=== PATIENT | male | born 1970 | race African-American/Black ===

== ENCOUNTER 2019-12-27 10:53 | Emergency (ER) | payer SELFPAY ==
[~2019-12-27] VITALS: Ht 175.3 cm; Wt 95.3 kg
[2019-12-27 11:34] LABS: BASOPHILS # (AUTO) 0.1 (0.0-0.1); BASOPHILS % 0.8 % (0.0-1.0); EOSINOPHILS # (AUTO) 0.1 (0.0-0.4); EOSINOPHILS % 1.3 % (0.0-6.0); HEMATOCRIT 41.2 % (38.2-49.6); HEMOGLOBIN 13.7 g/dL (14.0-18.0); LYMPHOCYTES # (AUTO) 2.3 (1.0-3.2); LYMPHOCYTES % 24.7 % (18.0-39.1); MEAN CORPUSCULAR HEMOGLOBIN 28.8 pg (28-32); MEAN CORPUSCULAR HGB CONC 33.3 g/dL (31-35); MEAN CORPUSCULAR VOLUME 86.7 fL (81-99); MONOCYTES # (AUTO) 0.7 (0.2-0.8); MONOCYTES % 7.9 % (4.4-11.3); PLATELET COUNT 248 x10e3/uL (140-360); RED BLOOD COUNT 4.75 x10e6/uL (4.3-5.7); RED CELL DISTRIBUTION WIDTH 13.7 % (11.7-14.4)
[2019-12-27 11:42] LABS: CLARITY,URINE CLOUDY (CLEAR); COLOR,URINE ORANGE (YELLOW); LEUKOCYTE ESTERASE ,URINE SMALL (NEGATIVE); NITRITE,URINE NEGATIVE (NEGATIVE)
[2019-12-27 11:43] LABS: BILIRUBIN,URINE NEGATIVE (NEGATIVE); KETONES,URINE NEGATIVE (NEGATIVE); PROTEIN,URINE DIPSTICK 1+ (NEGATIVE); URINE UROBILINOGEN 1 mg/dL (0.2 - 1)
[2019-12-27 11:44] LABS: PROTHROMBIN TIME 13.8 seconds (11.9-14.5)
[2019-12-27 11:45] LABS: PARTIAL THROMBOPLASTIN TIME 29.6 seconds (23.8-35.5)
[2019-12-27 11:49] LABS: RBC,URINE >50 /HPF (0-5); WBC,URINE (MAN) 21-50 /HPF (0-5)
[2019-12-27 11:50] LABS: BACTERIA,URINE MANY /HPF; EPITHELIAL CELLS,URINE FEW /LPF
[2019-12-27 11:51] LABS: ALANINE AMINOTRANSFERASE 32 IU/L (0-55); ALBUMIN 3.7 g/dL (3.5-5.0); ALBUMIN/GLOBULIN RATIO 0.9 (0.8-2.0); ALKALINE PHOSPHATASE 114 IU/L (40-150); BLOOD UREA NITROGEN 12 mg/dL (7-26); BUN/CREATININE RATIO 11 (6-25); CALCIUM 9.3 mg/dL (8.4-10.2); CARBON DIOXIDE 27 mmol/L (22-29); CHLORIDE 104 mmol/L (98-107); CREATININE, SERUM 1.13 mg/dL (0.72-1.25); EST GLOMERULAR FILTRATION RATE > 60 ML/MIN (60-); GLUCOSE 91 mg/dL (74-118); SODIUM 139 mmol/L (136-145)
[2019-12-27] MEDS ORDERED: AZITHROMYCIN 250 MG TAB PO STA (12:21)
[2019-12-27] MEDS ORDERED: CEFTRIAXONE SOD 1 GM/NS 50 ML 50 ML IV ONE (12:30)
[2019-12-27 13:46] VITALS: BP 118/77
== END 2019-12-27 13:50 | disposition home or self-care (01) ==
LOC: ER 10:53
DX: R30.0 Dysuria (principal); M54.5 Low back pain; N30.01 Acute cystitis with hematuria
CPT/HCPCS: 36415; 80053; 81001; 85025; 85610; 85730; 87086; 87186; 99284; J0696

== ENCOUNTER 2020-10-04 16:56 | Inpatient (IN) | payer BC ==
[~2020-10-04] VITALS: Ht 175.3 cm; Wt 95.3 kg
[2020-10-04] MEDS ORDERED: DEXAMETHASONE SOD PHOS 10 MG/1 ML VIAL IV STA (17:18)
[2020-10-04] MEDS ORDERED: AZITHROMYCIN 500MG/NS 250 ML 250 ML IV STA (17:18)
[2020-10-04] MEDS ORDERED: ASPIRIN 81 MG CHEW TAB PO ONE ×2 (17:30→19:15)
[2020-10-04 17:47] LABS: BASOPHILS % 0.1 % (0.0-1.0); EOSINOPHILS % 0.1 % (0.0-6.0); HEMATOCRIT 42.5 % (38.2-49.6); HEMOGLOBIN 14.1 g/dL (14.0-18.0); LYMPHOCYTES # (AUTO) 1.4 (1.0-3.2); LYMPHOCYTES % 20.4 % (18.0-39.1); MEAN CORPUSCULAR HEMOGLOBIN 27.6 pg (28-32); MEAN CORPUSCULAR HGB CONC 33.2 g/dL (31-35); MEAN CORPUSCULAR VOLUME 83.3 fL (81-99); MONOCYTES # (AUTO) 0.5 (0.2-0.8); MONOCYTES % 6.6 % (4.4-11.3); NEUTROPHILS # (AUTO) 4.9 (2.1-6.9); NEUTROPHILS % 72.4 % (38.7-80.0); PLATELET COUNT 182 x10e3/uL (140-360); RED CELL DISTRIBUTION WIDTH 13.7 % (11.7-14.4)
[2020-10-04 18:12] LABS: B-TYPE NATRIURETIC PEPTIDE2 < 10.0 pg/mL (0-100)
[2020-10-04 18:13] LABS: ALANINE AMINOTRANSFERASE 73 IU/L (0-55); ALBUMIN 3.7 g/dL (3.5-5.0); ALBUMIN/GLOBULIN RATIO 0.8 (0.8-2.0); ALKALINE PHOSPHATASE 95 IU/L (40-150); ANION GAP 19.1 mmol/L (8-16); BLOOD UREA NITROGEN 16 mg/dL (7-26); BUN/CREATININE RATIO 14 (6-25); CALCIUM 8.4 mg/dL (8.4-10.2); CARBON DIOXIDE 25 mmol/L (22-29); CHLORIDE 97 mmol/L (98-107); CREATINE KINASE 359 IU/L (30-200); CREATININE, SERUM 1.13 mg/dL (0.72-1.25); EST GLOMERULAR FILTRATION RATE > 60 ML/MIN (60-); GLUCOSE 119 mg/dL (74-118); POTASSIUM 4.1 mmol/L (3.5-5.1); SODIUM 137 mmol/L (136-145)
[2020-10-04] MEDS ORDERED: SODIUM CHLORIDE 0.9% 50ML 50 ML ONE (19:06)
[2020-10-04] MEDS ORDERED: IOPAMIDOL 370 MG/ML 200 ML INFUS..BTL INJ ONE (19:07)
[2020-10-04 23:00] VITALS: BP 114/79
[2020-10-04 23:40] VITALS: BP 146/81
[2020-10-04 23:46] VITALS: BP 146/81
[2020-10-05] MEDS ORDERED: SIMETHICONE 80 MG CHEW PO PRN (00:15)
[2020-10-05] MEDS ORDERED: DOCUSATE SODIUM 100 MG CAP PO PRN (00:15)
[2020-10-05] MEDS ORDERED: HYDROCODONE/APAP 5MG-325MG TAB PO PRN (00:15)
[2020-10-05] MEDS ORDERED: ACETAMINOPHEN 325 MG TAB PO PRN (00:15)
[2020-10-05] MEDS ORDERED: DEXTROSE 50% SYRINGE 50 ML IV PRN (00:15)
[2020-10-05] MEDS ORDERED: POTASSIUM CHLORIDE 20 MEQ TAB CR PO PRN (00:15)
[2020-10-05] MEDS ORDERED: HYDRALAZINE HCL 20 MG/ML VIAL IV PRN (00:15)
[2020-10-05] MEDS ORDERED: ONDANSETRON HCL INJ 2MG/ML 2ML 2 MG/ML VIAL IV PRN (00:15)
[2020-10-05] MEDS ORDERED: DIPHENHYDRAMINE HCL 25 MG CAP PO PRN (00:15)
[2020-10-05] MEDS ORDERED: CHLORASEPTIC SPRAY 177 ML BTL MM PRN (00:15)
[2020-10-05] MEDS ORDERED: POLYETHYLENE GLYCOL 3350 17 GM PACK PO PRN (00:15)
[2020-10-05] MEDS ORDERED: LIDOCAINE 4% PATCH TP PRN (00:15)
[2020-10-05] MEDS: CEFTRIAXONE SOD 1 GM/NS 50 ML 50 ML IV SCH (01:15)
[2020-10-05] MEDS ORDERED: SODIUM CHLORIDE 0.9% 250ML 250 ML ONE (01:25)
[2020-10-05 04:35] VITALS: BP 134/91
[2020-10-05 05:52] LABS: HEMATOCRIT 43.7 % (38.2-49.6); LYMPHOCYTES # (AUTO) 0.6 (1.0-3.2); MEAN CORPUSCULAR HEMOGLOBIN 27.2 pg (28-32); MONOCYTES # (AUTO) 0.2 (0.2-0.8); MONOCYTES % 4.6 % (4.4-11.3); NEUTROPHILS # (AUTO) 4.1 (2.1-6.9); NEUTROPHILS % 83.2 % (38.7-80.0); PLATELET COUNT 186 x10e3/uL (140-360); RED BLOOD COUNT 5.14 x10e6/uL (4.3-5.7); RED CELL DISTRIBUTION WIDTH 13.6 % (11.7-14.4)
[2020-10-05 06:27] LABS: CREATINE KINASE 269 IU/L (30-200)
[2020-10-05 06:51] LABS: ALANINE AMINOTRANSFERASE 88 IU/L (0-55); ALBUMIN 3.5 g/dL (3.5-5.0); ALBUMIN/GLOBULIN RATIO 0.8 (0.8-2.0); ALKALINE PHOSPHATASE 110 IU/L (40-150); BLOOD UREA NITROGEN 17 mg/dL (7-26); BUN/CREATININE RATIO 14 (6-25); CALCIUM 8.8 mg/dL (8.4-10.2); CARBON DIOXIDE 29 mmol/L (22-29); CHLORIDE 98 mmol/L (98-107); EST GLOMERULAR FILTRATION RATE > 60 ML/MIN (60-); GLUCOSE 262 mg/dL (74-118); SODIUM 139 mmol/L (136-145)
[2020-10-05 07:41] VITALS: BP 122/91
[2020-10-05] MEDS: PANTOPRAZOLE SOD 40 MG TABEC PO SCH (08:20)
[2020-10-05] MEDS: AZITHROMYCIN 500MG/NS 250 ML 250 ML IV SCH (08:20)
[2020-10-05] MEDS: DEXAMETHASONE SOD PHOS INJ 4 MG/ML VIAL IV SCH (08:20)
[2020-10-05 08:41] LABS: MAGNESIUM 2.5 MG/DL (1.3-2.1); PHOSPHORUS 4.6 MG/DL (2.3-4.7)
[2020-10-05 09:01] LABS: FERRITIN 989.61 ng/mL (21.81-274.66)
[2020-10-05] MEDS ORDERED: REMDESIVIR 200MG/NS 100ML 200 MG in SODIUM CHLORIDE 0.9% 100 ML 100 ML IV ONE (10:00)
[2020-10-05 10:08] VITALS: BP 122/91
[2020-10-05 10:33] LABS: CREATINE KINASE 223 IU/L (30-200)
[2020-10-05 11:54] VITALS: BP 118/64
[2020-10-05 15:57] VITALS: BP 129/81
[2020-10-05] MEDS: ENOXAPARIN SOD INJ 40 MG/0.4 ML SYR SC SCH (18:29)
[2020-10-05 21:21] VITALS: BP 128/88
[2020-10-06] VITALS (9 sets, daily range): BP systolic 100–123; BP diastolic 61–89
[2020-10-06] MEDS: CEFTRIAXONE SOD 1 GM/NS 50 ML 50 ML IV SCH ×2 (00:15→23:41)
[2020-10-06] MEDS: MELATONIN 5 MG TABLET PO PRN (01:27)
[2020-10-06 06:33] LABS: BASOPHILS % 0.1 % (0.0-1.0); HEMATOCRIT 42.5 % (38.2-49.6); HEMOGLOBIN 13.8 g/dL (14.0-18.0); LYMPHOCYTES # (AUTO) 1.2 (1.0-3.2); LYMPHOCYTES % 11.8 % (18.0-39.1); MEAN CORPUSCULAR HEMOGLOBIN 28.2 pg (28-32); MEAN CORPUSCULAR HGB CONC 32.5 g/dL (31-35); MEAN CORPUSCULAR VOLUME 86.7 fL (81-99); MONOCYTES # (AUTO) 0.8 (0.2-0.8); MONOCYTES % 7.8 % (4.4-11.3); NEUTROPHILS % 79.6 % (38.7-80.0); PLATELET COUNT 208 x10e3/uL (140-360); RED CELL DISTRIBUTION WIDTH 13.6 % (11.7-14.4)
[2020-10-06 07:01] LABS: ALANINE AMINOTRANSFERASE 76 IU/L (0-55); ALBUMIN 3.3 g/dL (3.5-5.0); ALBUMIN/GLOBULIN RATIO 0.8 (0.8-2.0); ALKALINE PHOSPHATASE 101 IU/L (40-150); ANION GAP 16.2 mmol/L (8-16); BLOOD UREA NITROGEN 16 mg/dL (7-26); BUN/CREATININE RATIO 14 (6-25); CALCIUM 8.4 mg/dL (8.4-10.2); CARBON DIOXIDE 29 mmol/L (22-29); CHLORIDE 99 mmol/L (98-107); CREATININE, SERUM 1.18 mg/dL (0.72-1.25); EST GLOMERULAR FILTRATION RATE > 60 ML/MIN (60-); GLUCOSE 234 mg/dL (74-118); POTASSIUM 5.2 mmol/L (3.5-5.1); SODIUM 139 mmol/L (136-145)
[2020-10-06] MEDS: PANTOPRAZOLE SOD 40 MG TABEC PO SCH (10:21)
[2020-10-06] MEDS: DEXAMETHASONE SOD PHOS INJ 4 MG/ML VIAL IV SCH (10:21)
[2020-10-06] MEDS: AZITHROMYCIN 500MG/NS 250 ML 250 ML IV SCH (10:21)
[2020-10-06] MEDS ORDERED: FUROSEMIDE INJ 10 MG/ML 4 ML VIAL IV ONE (11:15)
[2020-10-06] MEDS: GUAIFENESIN/CODEINE 10 ML CUP PO PRN ×2 (11:26→21:06)
[2020-10-06] MEDS: REMDESIVIR 100MG/NS 100ML 100 MG IV SCH (12:55)
[2020-10-06] MEDS: ENOXAPARIN SOD INJ 40 MG/0.4 ML SYR SC SCH (17:43)
[2020-10-06] MEDS: BENZONATATE 100 MG CAP PO PRN (21:06)
[2020-10-07] VITALS (8 sets, daily range): BP systolic 114–134; BP diastolic 83–88
[2020-10-07 06:41] LABS: BASOPHILS % 0.1 % (0.0-1.0); HEMATOCRIT 44.4 % (38.2-49.6); HEMOGLOBIN 14.1 g/dL (14.0-18.0); LYMPHOCYTES # (AUTO) 1.3 (1.0-3.2); LYMPHOCYTES % 15.4 % (18.0-39.1); MEAN CORPUSCULAR HEMOGLOBIN 27.1 pg (28-32); MEAN CORPUSCULAR HGB CONC 31.8 g/dL (31-35); MEAN CORPUSCULAR VOLUME 85.4 fL (81-99); MONOCYTES # (AUTO) 0.8 (0.2-0.8); MONOCYTES % 9.9 % (4.4-11.3); NEUTROPHILS % 73.7 % (38.7-80.0); PLATELET COUNT 239 x10e3/uL (140-360); RED CELL DISTRIBUTION WIDTH 13.7 % (11.7-14.4)
[2020-10-07 07:18] LABS: ANION GAP 18.8 mmol/L (8-16); BLOOD UREA NITROGEN 21 mg/dL (7-26); BUN/CREATININE RATIO 18 (6-25); CALCIUM 8.6 mg/dL (8.4-10.2); CARBON DIOXIDE 29 mmol/L (22-29); CHLORIDE 98 mmol/L (98-107); CREATININE, SERUM 1.17 mg/dL (0.72-1.25); EST GLOMERULAR FILTRATION RATE > 60 ML/MIN (60-); GLUCOSE 155 mg/dL (74-118); POTASSIUM 4.8 mmol/L (3.5-5.1); SODIUM 141 mmol/L (136-145)
[2020-10-07] MEDS: PANTOPRAZOLE SOD 40 MG TABEC PO SCH (08:23)
[2020-10-07] MEDS: DEXAMETHASONE SOD PHOS INJ 4 MG/ML VIAL IV SCH (08:39)
[2020-10-07] MEDS: REMDESIVIR 100MG/NS 100ML 100 MG IV SCH (08:39)
[2020-10-07] MEDS: AZITHROMYCIN 500MG/NS 250 ML 250 ML IV SCH (10:34)
[2020-10-07] MEDS: PIPER-TAZ 3.375 GM 50 ML IV SCH ×2 (13:49→21:34)
[2020-10-07] MEDS: ENOXAPARIN SOD INJ 40 MG/0.4 ML SYR SC SCH (16:39)
[2020-10-07] MEDS ORDERED: SODIUM CHLORIDE 0.9% 250ML 250 ML ONE (21:23)
[2020-10-08] VITALS (8 sets, daily range): BP systolic 106–120; BP diastolic 79–91
[2020-10-08] MEDS: PIPER-TAZ 3.375 GM 50 ML IV SCH ×3 (06:20→21:20)
[2020-10-08] MEDS: PANTOPRAZOLE SOD 40 MG TABEC PO SCH (08:00)
[2020-10-08] MEDS: DEXAMETHASONE SOD PHOS INJ 4 MG/ML VIAL IV SCH (08:00)
[2020-10-08] MEDS: REMDESIVIR 100MG/NS 100ML 100 MG IV SCH (11:00)
[2020-10-08] MEDS: ENOXAPARIN SOD INJ 40 MG/0.4 ML SYR SC SCH ×2 (12:29→21:20)
[2020-10-08] MEDS: GUAIFENESIN/CODEINE 10 ML CUP PO PRN (12:34)
[2020-10-08] MEDS ORDERED: SODIUM CHLORIDE 0.9% 250ML 250 ML ONE (21:20)
[2020-10-09] VITALS (8 sets, daily range): BP systolic 99–148; BP diastolic 67–131
[2020-10-09] MEDS: GUAIFENESIN/CODEINE 10 ML CUP PO PRN (05:40)
[2020-10-09] MEDS: PIPER-TAZ 3.375 GM 50 ML IV SCH ×3 (06:00→22:30)
[2020-10-09 06:47] LABS: BASOPHILS % 0.1 % (0.0-1.0); EOSINOPHILS % 0.1 % (0.0-6.0); HEMATOCRIT 35.8 % (38.2-49.6); LYMPHOCYTES # (AUTO) 1.5 (1.0-3.2); LYMPHOCYTES % 13.4 % (18.0-39.1); MEAN CORPUSCULAR HEMOGLOBIN 29.4 pg (28-32); MEAN CORPUSCULAR HGB CONC 33.5 g/dL (31-35); MEAN CORPUSCULAR VOLUME 87.7 fL (81-99); MONOCYTES # (AUTO) 0.7 (0.2-0.8); MONOCYTES % 6.4 % (4.4-11.3); NEUTROPHILS # (AUTO) 8.9 (2.1-6.9); NEUTROPHILS % 78.9 % (38.7-80.0); PLATELET COUNT 186 x10e3/uL (140-360); RED BLOOD COUNT 4.08 x10e6/uL (4.3-5.7); RED CELL DISTRIBUTION WIDTH 14.2 % (11.7-14.4)
[2020-10-09 07:02] LABS: ALANINE AMINOTRANSFERASE 29 IU/L (0-55); ALBUMIN 2.2 g/dL (3.5-5.0); ALBUMIN/GLOBULIN RATIO 0.8 (0.8-2.0); ALKALINE PHOSPHATASE 60 IU/L (40-150); ANION GAP 10.9 mmol/L (8-16); BLOOD UREA NITROGEN 18 mg/dL (7-26); BUN/CREATININE RATIO 25 (6-25); CARBON DIOXIDE 20 mmol/L (22-29); CHLORIDE 113 mmol/L (98-107); CREATININE, SERUM 0.71 mg/dL (0.72-1.25); EST GLOMERULAR FILTRATION RATE > 60 ML/MIN (60-); GLUCOSE 124 mg/dL (74-118); SODIUM 141 mmol/L (136-145)
[2020-10-09 07:42] LABS: POTASSIUM 2.9 mmol/L (3.5-5.1)
[2020-10-09 07:43] LABS: CALCIUM 5.9 mg/dL (8.4-10.2)
[2020-10-09] MEDS: DEXAMETHASONE SOD PHOS INJ 4 MG/ML VIAL IV SCH (08:30)
[2020-10-09] MEDS: PANTOPRAZOLE SOD 40 MG TABEC PO SCH (08:30)
[2020-10-09] MEDS: ENOXAPARIN SOD INJ 40 MG/0.4 ML SYR SC SCH ×2 (08:30→20:52)
[2020-10-09] MEDS: REMDESIVIR 100MG/NS 100ML 100 MG IV SCH (11:00)
[2020-10-09] MEDS ORDERED: POTASSIUM CHLORIDE 10MEQ/100ML 100 ML IV ONE (13:45)
[2020-10-09] MEDS ORDERED: CALCIUM CHLORIDE 13.6 MEQ in SODIUM CHLORIDE 0.9% 100 ML 100 ML IV ONE (14:00)
[2020-10-09] MEDS ORDERED: POTASSIUM CHLORIDE 20MEQ/100ML 200 ML IV ONE (15:00)
[2020-10-09 16:07] LABS: ANION GAP 17.6 mmol/L (8-16); BLOOD UREA NITROGEN 24 mg/dL (7-26); BUN/CREATININE RATIO 22 (6-25); CALCIUM 8.3 mg/dL (8.4-10.2); CARBON DIOXIDE 19 mmol/L (22-29); CHLORIDE 102 mmol/L (98-107); CREATININE, SERUM 1.11 mg/dL (0.72-1.25); EST GLOMERULAR FILTRATION RATE > 60 ML/MIN (60-); GLUCOSE 309 mg/dL (74-118); POTASSIUM 4.6 mmol/L (3.5-5.1); SODIUM 134 mmol/L (136-145)
[2020-10-09] MEDS: ALBUTEROL SULFATE HFA 8GM INHALATION AEROSOL INH SCH (20:55)
[2020-10-10] VITALS (9 sets, daily range): BP systolic 98–127; BP diastolic 58–88
[2020-10-10] MEDS: ALBUTEROL SULFATE HFA 8GM INHALATION AEROSOL INH SCH ×4 (01:20→20:20)
[2020-10-10 05:09] LABS: BASOPHILS % 0.2 % (0.0-1.0); EOSINOPHILS % 0.2 % (0.0-6.0); HEMATOCRIT 40.1 % (38.2-49.6); HEMOGLOBIN 13.1 g/dL (14.0-18.0); LYMPHOCYTES # (AUTO) 1.3 (1.0-3.2); LYMPHOCYTES % 9.7 % (18.0-39.1); MEAN CORPUSCULAR HEMOGLOBIN 27.3 pg (28-32); MEAN CORPUSCULAR HGB CONC 32.7 g/dL (31-35); MEAN CORPUSCULAR VOLUME 83.5 fL (81-99); MONOCYTES # (AUTO) 0.8 (0.2-0.8); MONOCYTES % 5.6 % (4.4-11.3); NEUTROPHILS # (AUTO) 11.3 (2.1-6.9); NEUTROPHILS % 83.2 % (38.7-80.0); PLATELET COUNT 256 x10e3/uL (140-360); RED CELL DISTRIBUTION WIDTH 13.4 % (11.7-14.4)
[2020-10-10 05:51] LABS: ALANINE AMINOTRANSFERASE 36 IU/L (0-55); ALBUMIN 2.9 g/dL (3.5-5.0); ALBUMIN/GLOBULIN RATIO 0.7 (0.8-2.0); ALKALINE PHOSPHATASE 85 IU/L (40-150); ANION GAP 15.8 mmol/L (8-16); BLOOD UREA NITROGEN 20 mg/dL (7-26); BUN/CREATININE RATIO 19 (6-25); CALCIUM 8.2 mg/dL (8.4-10.2); CARBON DIOXIDE 22 mmol/L (22-29); CHLORIDE 102 mmol/L (98-107); CREATININE, SERUM 1.05 mg/dL (0.72-1.25); EST GLOMERULAR FILTRATION RATE > 60 ML/MIN (60-); GLUCOSE 223 mg/dL (74-118); POTASSIUM 3.8 mmol/L (3.5-5.1); SODIUM 136 mmol/L (136-145)
[2020-10-10] MEDS: PIPER-TAZ 3.375 GM 50 ML IV SCH (06:10)
[2020-10-10] MEDS: ENOXAPARIN SOD INJ 40 MG/0.4 ML SYR SC SCH ×2 (07:59→20:37)
[2020-10-10] MEDS: PANTOPRAZOLE SOD 40 MG TABEC PO SCH (07:59)
[2020-10-10] MEDS: DEXAMETHASONE SOD PHOS INJ 4 MG/ML VIAL IV SCH (07:59)
[2020-10-10] MEDS ORDERED: LACTATED RINGER'S 500 ML IV ONE (15:00)
[2020-10-10] MEDS: GUAIFENESIN/CODEINE 10 ML CUP PO PRN (21:10)
[2020-10-11] VITALS (8 sets, daily range): BP systolic 104–133; BP diastolic 62–88
[2020-10-11] MEDS: ALBUTEROL SULFATE HFA 8GM INHALATION AEROSOL INH SCH ×4 (01:00→19:00)
[2020-10-11 05:20] LABS: BASOPHILS % 0.2 % (0.0-1.0); EOSINOPHILS # (AUTO) 0.1 (0.0-0.4); EOSINOPHILS % 0.7 % (0.0-6.0); HEMATOCRIT 40.3 % (38.2-49.6); HEMOGLOBIN 13.1 g/dL (14.0-18.0); LYMPHOCYTES # (AUTO) 1.2 (1.0-3.2); LYMPHOCYTES % 9.6 % (18.0-39.1); MEAN CORPUSCULAR HEMOGLOBIN 27.3 pg (28-32); MEAN CORPUSCULAR HGB CONC 32.5 g/dL (31-35); MONOCYTES # (AUTO) 0.8 (0.2-0.8); NEUTROPHILS # (AUTO) 10.3 (2.1-6.9); NEUTROPHILS % 82.4 % (38.7-80.0); PLATELET COUNT 279 x10e3/uL (140-360); RED CELL DISTRIBUTION WIDTH 13.7 % (11.7-14.4)
[2020-10-11 05:48] LABS: ANION GAP 15.1 mmol/L (8-16); BLOOD UREA NITROGEN 16 mg/dL (7-26); BUN/CREATININE RATIO 16 (6-25); CALCIUM 8.4 mg/dL (8.4-10.2); CARBON DIOXIDE 26 mmol/L (22-29); CHLORIDE 102 mmol/L (98-107); CREATININE, SERUM 1.01 mg/dL (0.72-1.25); EST GLOMERULAR FILTRATION RATE > 60 ML/MIN (60-); GLUCOSE 211 mg/dL (74-118); POTASSIUM 4.1 mmol/L (3.5-5.1); SODIUM 139 mmol/L (136-145)
[2020-10-11] MEDS: ENOXAPARIN SOD INJ 40 MG/0.4 ML SYR SC SCH ×2 (08:13→20:28)
[2020-10-11] MEDS: PANTOPRAZOLE SOD 40 MG TABEC PO SCH (08:13)
[2020-10-11] MEDS: DEXAMETHASONE SOD PHOS INJ 4 MG/ML VIAL IV SCH (08:13)
[2020-10-11] MEDS ORDERED: LACTATED RINGER'S 500 ML IV ONE (15:15)
[2020-10-11] MEDS: MELATONIN 5 MG TABLET PO PRN (20:28)
[2020-10-12] VITALS (7 sets, daily range): BP systolic 103–124; BP diastolic 79–87
[2020-10-12] MEDS: ALBUTEROL SULFATE HFA 8GM INHALATION AEROSOL INH SCH ×5 (01:15→19:50)
[2020-10-12] MEDS: ENOXAPARIN SOD INJ 40 MG/0.4 ML SYR SC SCH ×2 (08:08→20:33)
[2020-10-12] MEDS: PANTOPRAZOLE SOD 40 MG TABEC PO SCH (08:08)
[2020-10-12] MEDS: DEXAMETHASONE SOD PHOS INJ 4 MG/ML VIAL IV SCH (08:08)
[2020-10-12] MEDS ORDERED: FUROSEMIDE INJ 10 MG/ML 2 ML VIAL IV ONE (09:00)
[2020-10-13] VITALS (8 sets, daily range): BP systolic 114–133; BP diastolic 76–92
[2020-10-13] MEDS: ALBUTEROL SULFATE HFA 8GM INHALATION AEROSOL INH SCH ×5 (01:00→19:25)
[2020-10-13 05:01] LABS: BASOPHILS % 0.1 % (0.0-1.0); EOSINOPHILS # (AUTO) 0.1 (0.0-0.4); EOSINOPHILS % 0.4 % (0.0-6.0); HEMATOCRIT 39.5 % (38.2-49.6); HEMOGLOBIN 13.1 g/dL (14.0-18.0); LYMPHOCYTES # (AUTO) 1.3 (1.0-3.2); MEAN CORPUSCULAR HEMOGLOBIN 27.3 pg (28-32); MEAN CORPUSCULAR HGB CONC 33.2 g/dL (31-35); MEAN CORPUSCULAR VOLUME 82.3 fL (81-99); MONOCYTES # (AUTO) 0.9 (0.2-0.8); MONOCYTES % 6.4 % (4.4-11.3); NEUTROPHILS # (AUTO) 11.7 (2.1-6.9); NEUTROPHILS % 83.1 % (38.7-80.0); PLATELET COUNT 317 x10e3/uL (140-360); RED CELL DISTRIBUTION WIDTH 13.7 % (11.7-14.4)
[2020-10-13 05:27] LABS: ALANINE AMINOTRANSFERASE 30 IU/L (0-55); ALBUMIN/GLOBULIN RATIO 0.8 (0.8-2.0); ALKALINE PHOSPHATASE 82 IU/L (40-150); ANION GAP 16.3 mmol/L (8-16); BLOOD UREA NITROGEN 21 mg/dL (7-26); BUN/CREATININE RATIO 20 (6-25); CALCIUM 8.7 mg/dL (8.4-10.2); CARBON DIOXIDE 25 mmol/L (22-29); CHLORIDE 99 mmol/L (98-107); CREATININE, SERUM 1.05 mg/dL (0.72-1.25); EST GLOMERULAR FILTRATION RATE > 60 ML/MIN (60-); GLUCOSE 324 mg/dL (74-118); POTASSIUM 4.3 mmol/L (3.5-5.1); SODIUM 136 mmol/L (136-145)
[2020-10-13] MEDS: ENOXAPARIN SOD INJ 40 MG/0.4 ML SYR SC SCH ×2 (08:00→20:07)
[2020-10-13] MEDS: PANTOPRAZOLE SOD 40 MG TABEC PO SCH (08:00)
[2020-10-13] MEDS: DEXAMETHASONE SOD PHOS INJ 4 MG/ML VIAL IV SCH (08:00)
[2020-10-13] MEDS: BENZONATATE 100 MG CAP PO PRN (21:46)
[2020-10-14] VITALS (8 sets, daily range): BP systolic 111–132; BP diastolic 79–97
[2020-10-14] MEDS: ALBUTEROL SULFATE HFA 8GM INHALATION AEROSOL INH SCH ×3 (07:00→19:25)
[2020-10-14] MEDS: DEXAMETHASONE SOD PHOS INJ 4 MG/ML VIAL IV SCH (08:27)
[2020-10-14] MEDS: ENOXAPARIN SOD INJ 40 MG/0.4 ML SYR SC SCH ×2 (08:27→21:34)
[2020-10-14] MEDS: PANTOPRAZOLE SOD 40 MG TABEC PO SCH (08:27)
[2020-10-15] VITALS (8 sets, daily range): BP systolic 106–125; BP diastolic 71–93
[2020-10-15] MEDS: ALBUTEROL SULFATE HFA 8GM INHALATION AEROSOL INH SCH ×4 (01:37→19:52)
[2020-10-15 06:03] LABS: BASOPHILS % 0.2 % (0.0-1.0); EOSINOPHILS # (AUTO) 0.1 (0.0-0.4); EOSINOPHILS % 0.7 % (0.0-6.0); HEMATOCRIT 39.1 % (38.2-49.6); HEMOGLOBIN 12.6 g/dL (14.0-18.0); LYMPHOCYTES # (AUTO) 1.7 (1.0-3.2); LYMPHOCYTES % 12.9 % (18.0-39.1); MEAN CORPUSCULAR HEMOGLOBIN 27.1 pg (28-32); MEAN CORPUSCULAR HGB CONC 32.2 g/dL (31-35); MEAN CORPUSCULAR VOLUME 84.1 fL (81-99); MONOCYTES % 7.1 % (4.4-11.3); NEUTROPHILS # (AUTO) 10.4 (2.1-6.9); NEUTROPHILS % 78.1 % (38.7-80.0); PLATELET COUNT 275 x10e3/uL (140-360); RED BLOOD COUNT 4.65 x10e6/uL (4.3-5.7); RED CELL DISTRIBUTION WIDTH 13.7 % (11.7-14.4)
[2020-10-15 06:22] LABS: ALANINE AMINOTRANSFERASE 34 IU/L (0-55); ALBUMIN/GLOBULIN RATIO 0.8 (0.8-2.0); ALKALINE PHOSPHATASE 82 IU/L (40-150); ANION GAP 15.9 mmol/L (8-16); BLOOD UREA NITROGEN 16 mg/dL (7-26); BUN/CREATININE RATIO 16 (6-25); CALCIUM 8.3 mg/dL (8.4-10.2); CARBON DIOXIDE 29 mmol/L (22-29); CHLORIDE 94 mmol/L (98-107); CREATININE, SERUM 0.99 mg/dL (0.72-1.25); EST GLOMERULAR FILTRATION RATE > 60 ML/MIN (60-); GLUCOSE 264 mg/dL (74-118); POTASSIUM 3.9 mmol/L (3.5-5.1); SODIUM 135 mmol/L (136-145)
[2020-10-15] MEDS: PANTOPRAZOLE SOD 40 MG TABEC PO SCH (07:30)
[2020-10-15] MEDS: ENOXAPARIN SOD INJ 40 MG/0.4 ML SYR SC SCH ×2 (08:06→21:26)
[2020-10-15] MEDS: DEXAMETHASONE 4 MG TAB PO SCH (13:29)
[2020-10-15] MEDS: ASCORBIC ACID 500 MG TAB PO SCH (17:00)
[2020-10-16] VITALS (8 sets, daily range): BP systolic 109–134; BP diastolic 71–98
[2020-10-16] MEDS: ALBUTEROL SULFATE HFA 8GM INHALATION AEROSOL INH SCH ×4 (01:01→18:27)
[2020-10-16 06:41] LABS: BASOPHILS % 0.2 % (0.0-1.0); HEMATOCRIT 41.2 % (38.2-49.6); HEMOGLOBIN 13.5 g/dL (14.0-18.0); LYMPHOCYTES # (AUTO) 1.3 (1.0-3.2); LYMPHOCYTES % 7.7 % (18.0-39.1); MEAN CORPUSCULAR HEMOGLOBIN 27.4 pg (28-32); MEAN CORPUSCULAR HGB CONC 32.8 g/dL (31-35); MEAN CORPUSCULAR VOLUME 83.6 fL (81-99); MONOCYTES % 6.1 % (4.4-11.3); NEUTROPHILS # (AUTO) 14.5 (2.1-6.9); NEUTROPHILS % 85.1 % (38.7-80.0); PLATELET COUNT 272 x10e3/uL (140-360); RED BLOOD COUNT 4.93 x10e6/uL (4.3-5.7); RED CELL DISTRIBUTION WIDTH 13.9 % (11.7-14.4)
[2020-10-16 07:06] LABS: BLOOD UREA NITROGEN 22 mg/dL (7-26); BUN/CREATININE RATIO 21 (6-25); CALCIUM 8.8 mg/dL (8.4-10.2); CARBON DIOXIDE 27 mmol/L (22-29); CHLORIDE 95 mmol/L (98-107); CREATININE, SERUM 1.06 mg/dL (0.72-1.25); EST GLOMERULAR FILTRATION RATE > 60 ML/MIN (60-); GLUCOSE 336 mg/dL (74-118); SODIUM 131 mmol/L (136-145)
[2020-10-16] MEDS: PANTOPRAZOLE SOD 40 MG TABEC PO SCH (09:06)
[2020-10-16] MEDS: ZINC SULFATE 220 MG CAP PO SCH (09:06)
[2020-10-16] MEDS: ENOXAPARIN SOD INJ 40 MG/0.4 ML SYR SC SCH ×2 (09:06→20:32)
[2020-10-16] MEDS: DEXAMETHASONE 4 MG TAB PO SCH (09:06)
[2020-10-16] MEDS: ASCORBIC ACID 500 MG TAB PO SCH ×2 (09:06→18:27)
[2020-10-17] VITALS (8 sets, daily range): BP systolic 107–138; BP diastolic 79–98
[2020-10-17] MEDS: ALBUTEROL SULFATE HFA 8GM INHALATION AEROSOL INH SCH ×4 (01:24→19:30)
[2020-10-17] MEDS: ZINC SULFATE 220 MG CAP PO SCH (08:30)
[2020-10-17] MEDS: ASCORBIC ACID 500 MG TAB PO SCH ×2 (08:30→17:21)
[2020-10-17] MEDS: DEXAMETHASONE 4 MG TAB PO SCH (08:30)
[2020-10-17] MEDS: ENOXAPARIN SOD INJ 40 MG/0.4 ML SYR SC SCH ×2 (08:30→20:31)
[2020-10-17] MEDS: PANTOPRAZOLE SOD 40 MG TABEC PO SCH (08:30)
[2020-10-17] MEDS ORDERED: DEXTROSE 50% SYRINGE 50 ML IV PRN (11:00)
[2020-10-17] MEDS: INSULIN LISPRO 100 UNIT/1 ML 3ML VIAL SQ SCH ×3 (13:08→20:22)
[2020-10-18] VITALS (7 sets, daily range): BP systolic 106–127; BP diastolic 63–104
[2020-10-18] MEDS: ALBUTEROL SULFATE HFA 8GM INHALATION AEROSOL INH SCH ×4 (01:00→19:00)
[2020-10-18 04:01] LABS: BASOPHILS % 0.2 % (0.0-1.0); EOSINOPHILS % 0.2 % (0.0-6.0); HEMATOCRIT 38.4 % (38.2-49.6); HEMOGLOBIN 12.8 g/dL (14.0-18.0); LYMPHOCYTES # (AUTO) 2.2 (1.0-3.2); LYMPHOCYTES % 13.3 % (18.0-39.1); MEAN CORPUSCULAR HEMOGLOBIN 27.6 pg (28-32); MEAN CORPUSCULAR HGB CONC 33.3 g/dL (31-35); MEAN CORPUSCULAR VOLUME 82.8 fL (81-99); MONOCYTES % 6.4 % (4.4-11.3); NEUTROPHILS # (AUTO) 12.7 (2.1-6.9); NEUTROPHILS % 78.7 % (38.7-80.0); PLATELET COUNT 277 x10e3/uL (140-360); RED BLOOD COUNT 4.64 x10e6/uL (4.3-5.7); RED CELL DISTRIBUTION WIDTH 13.9 % (11.7-14.4)
[2020-10-18 04:19] LABS: ANION GAP 15.2 mmol/L (8-16); BLOOD UREA NITROGEN 21 mg/dL (7-26); BUN/CREATININE RATIO 18 (6-25); CARBON DIOXIDE 26 mmol/L (22-29); CHLORIDE 96 mmol/L (98-107); CREATININE, SERUM 1.17 mg/dL (0.72-1.25); EST GLOMERULAR FILTRATION RATE > 60 ML/MIN (60-); GLUCOSE 323 mg/dL (74-118); POTASSIUM 4.2 mmol/L (3.5-5.1); SODIUM 133 mmol/L (136-145)
[2020-10-18] MEDS: PANTOPRAZOLE SOD 40 MG TABEC PO SCH (08:30)
[2020-10-18] MEDS: INSULIN LISPRO 100 UNIT/1 ML 3ML VIAL SQ SCH ×4 (08:30→21:27)
[2020-10-18] MEDS: DEXAMETHASONE 4 MG TAB PO SCH (09:25)
[2020-10-18] MEDS: ASCORBIC ACID 500 MG TAB PO SCH ×2 (09:25→16:02)
[2020-10-18] MEDS: ENOXAPARIN SOD INJ 40 MG/0.4 ML SYR SC SCH ×2 (09:25→21:12)
[2020-10-18] MEDS: ZINC SULFATE 220 MG CAP PO SCH (09:25)
[2020-10-18] MEDS ORDERED: DEXTROSE 50% SYRINGE 50 ML IV PRN (19:15)
[2020-10-19] VITALS (8 sets, daily range): BP systolic 98–128; BP diastolic 66–89
[2020-10-19] MEDS ORDERED: INSULIN LISPRO 100 UNIT/1 ML 3ML VIAL SQ ONE (00:45)
[2020-10-19] MEDS: ALBUTEROL SULFATE HFA 8GM INHALATION AEROSOL INH SCH ×3 (01:00→13:15)
[2020-10-19 04:14] LABS: BASOPHILS % 0.2 % (0.0-1.0); EOSINOPHILS % 0.2 % (0.0-6.0); HEMATOCRIT 37.5 % (38.2-49.6); HEMOGLOBIN 12.4 g/dL (14.0-18.0); LYMPHOCYTES # (AUTO) 1.9 (1.0-3.2); LYMPHOCYTES % 12.5 % (18.0-39.1); MEAN CORPUSCULAR HEMOGLOBIN 27.7 pg (28-32); MEAN CORPUSCULAR HGB CONC 33.1 g/dL (31-35); MEAN CORPUSCULAR VOLUME 83.7 fL (81-99); NEUTROPHILS # (AUTO) 11.7 (2.1-6.9); NEUTROPHILS % 78.8 % (38.7-80.0); PLATELET COUNT 245 x10e3/uL (140-360); RED BLOOD COUNT 4.48 x10e6/uL (4.3-5.7); RED CELL DISTRIBUTION WIDTH 14.1 % (11.7-14.4)
[2020-10-19 04:27] LABS: ANION GAP 11.9 mmol/L (8-16); BLOOD UREA NITROGEN 18 mg/dL (7-26); BUN/CREATININE RATIO 17 (6-25); CALCIUM 8.4 mg/dL (8.4-10.2); CARBON DIOXIDE 28 mmol/L (22-29); CHLORIDE 99 mmol/L (98-107); CREATININE, SERUM 1.08 mg/dL (0.72-1.25); EST GLOMERULAR FILTRATION RATE > 60 ML/MIN (60-); GLUCOSE 281 mg/dL (74-118); POTASSIUM 3.9 mmol/L (3.5-5.1); SODIUM 135 mmol/L (136-145)
[2020-10-19] MEDS: PANTOPRAZOLE SOD 40 MG TABEC PO SCH (08:30)
[2020-10-19] MEDS: INSULIN LISPRO 100 UNIT/1 ML 3ML VIAL SQ SCH ×4 (08:30→21:00)
[2020-10-19] MEDS: ENOXAPARIN SOD INJ 40 MG/0.4 ML SYR SC SCH ×2 (09:30→21:00)
[2020-10-19] MEDS: ZINC SULFATE 220 MG CAP PO SCH (09:30)
[2020-10-19] MEDS: ASCORBIC ACID 500 MG TAB PO SCH ×2 (09:30→17:15)
[2020-10-20] VITALS (8 sets, daily range): BP systolic 114–143; BP diastolic 76–90
[2020-10-20] MEDS: ALBUTEROL SULFATE HFA 8GM INHALATION AEROSOL INH SCH ×3 (07:00→18:07)
[2020-10-20] MEDS: ASCORBIC ACID 500 MG TAB PO SCH ×2 (08:59→17:13)
[2020-10-20] MEDS: PANTOPRAZOLE SOD 40 MG TABEC PO SCH (08:59)
[2020-10-20] MEDS: INSULIN LISPRO 100 UNIT/1 ML 3ML VIAL SQ SCH ×4 (08:59→21:00)
[2020-10-20] MEDS: ZINC SULFATE 220 MG CAP PO SCH (08:59)
[2020-10-20] MEDS: ENOXAPARIN SOD INJ 40 MG/0.4 ML SYR SC SCH ×2 (08:59→21:00)
[2020-10-21] VITALS (8 sets, daily range): BP systolic 115–133; BP diastolic 66–92
[2020-10-21 06:17] LABS: BASOPHILS % 0.3 % (0.0-1.0); EOSINOPHILS # (AUTO) 0.2 (0.0-0.4); EOSINOPHILS % 2.1 % (0.0-6.0); HEMATOCRIT 39.2 % (38.2-49.6); HEMOGLOBIN 12.8 g/dL (14.0-18.0); LYMPHOCYTES # (AUTO) 2.3 (1.0-3.2); LYMPHOCYTES % 19.9 % (18.0-39.1); MEAN CORPUSCULAR HEMOGLOBIN 27.9 pg (28-32); MEAN CORPUSCULAR HGB CONC 32.7 g/dL (31-35); MEAN CORPUSCULAR VOLUME 85.4 fL (81-99); MONOCYTES # (AUTO) 0.8 (0.2-0.8); NEUTROPHILS # (AUTO) 7.9 (2.1-6.9); NEUTROPHILS % 69.3 % (38.7-80.0); PLATELET COUNT 210 x10e3/uL (140-360); RED BLOOD COUNT 4.59 x10e6/uL (4.3-5.7); RED CELL DISTRIBUTION WIDTH 14.6 % (11.7-14.4)
[2020-10-21 06:37] LABS: ANION GAP 14.8 mmol/L (8-16); BLOOD UREA NITROGEN 17 mg/dL (7-26); BUN/CREATININE RATIO 16 (6-25); CALCIUM 8.5 mg/dL (8.4-10.2); CARBON DIOXIDE 26 mmol/L (22-29); CHLORIDE 100 mmol/L (98-107); CREATININE, SERUM 1.04 mg/dL (0.72-1.25); EST GLOMERULAR FILTRATION RATE > 60 ML/MIN (60-); GLUCOSE 277 mg/dL (74-118); POTASSIUM 3.8 mmol/L (3.5-5.1); SODIUM 137 mmol/L (136-145)
[2020-10-21] MEDS: ALBUTEROL SULFATE HFA 8GM INHALATION AEROSOL INH SCH ×3 (07:00→17:52)
[2020-10-21] MEDS: INSULIN LISPRO 100 UNIT/1 ML 3ML VIAL SQ SCH ×4 (07:30→20:52)
[2020-10-21] MEDS: ASCORBIC ACID 500 MG TAB PO SCH ×2 (08:45→16:44)
[2020-10-21] MEDS: ZINC SULFATE 220 MG CAP PO SCH (08:45)
[2020-10-21] MEDS: ENOXAPARIN SOD INJ 40 MG/0.4 ML SYR SC SCH ×2 (08:45→20:52)
[2020-10-21] MEDS: PANTOPRAZOLE SOD 40 MG TABEC PO SCH (08:45)
[2020-10-22] MEDS: ALBUTEROL SULFATE HFA 8GM INHALATION AEROSOL INH SCH ×4 (01:00→21:25)
[2020-10-22 04:00] VITALS: BP 119/92
[2020-10-22 08:00] VITALS: BP 119/86
[2020-10-22] MEDS: ASCORBIC ACID 500 MG TAB PO SCH ×2 (08:30→17:06)
[2020-10-22] MEDS: ZINC SULFATE 220 MG CAP PO SCH (08:30)
[2020-10-22] MEDS: PANTOPRAZOLE SOD 40 MG TABEC PO SCH (08:30)
[2020-10-22] MEDS: INSULIN LISPRO 100 UNIT/1 ML 3ML VIAL SQ SCH ×4 (08:30→21:25)
[2020-10-22] MEDS: ENOXAPARIN SOD INJ 40 MG/0.4 ML SYR SC SCH (08:30)
[2020-10-22 09:12] VITALS: BP 119/86
[2020-10-22 12:07] VITALS: BP 111/80
[2020-10-22 16:21] VITALS: BP 125/83
[2020-10-22 20:00] VITALS: BP 115/78
[2020-10-22] MEDS ORDERED: INSULIN LISPRO 100 UNIT/1 ML 3ML VIAL SQ SCH (21:15)
[2020-10-23] VITALS: BP_SYST 102; BP_SYST 133; BP_DIAS 64; BP_DIAS 89
[2020-10-23] MEDS: ALBUTEROL SULFATE HFA 8GM INHALATION AEROSOL INH SCH ×3 (01:00→14:12)
[2020-10-23 07:32] LABS: ANION GAP 14.8 mmol/L (8-16); BLOOD UREA NITROGEN 14 mg/dL (7-26); BUN/CREATININE RATIO 14 (6-25); CALCIUM 8.4 mg/dL (8.4-10.2); CARBON DIOXIDE 27 mmol/L (22-29); CHLORIDE 99 mmol/L (98-107); CREATININE, SERUM 1.01 mg/dL (0.72-1.25); EST GLOMERULAR FILTRATION RATE > 60 ML/MIN (60-); GLUCOSE 290 mg/dL (74-118); POTASSIUM 3.8 mmol/L (3.5-5.1); SODIUM 137 mmol/L (136-145)
[2020-10-23] MEDS: PANTOPRAZOLE SOD 40 MG TABEC PO SCH (07:50)
[2020-10-23] MEDS: INSULIN LISPRO 100 UNIT/1 ML 3ML VIAL SQ SCH ×2 (07:51→11:15)
[2020-10-23] MEDS: ZINC SULFATE 220 MG CAP PO SCH (07:52)
[2020-10-23] MEDS: ASCORBIC ACID 500 MG TAB PO SCH (07:52)
[2020-10-23 07:54] VITALS: BP 117/86
[2020-10-23] MEDS ORDERED: OXYMETAZOLINE HCL 0.05% NAS 1 SPRAY BTL SCH (09:00)
[2020-10-23 09:07] VITALS: BP 117/86
[2020-10-23 11:07] VITALS: BP 114/91
[2020-10-23] MEDS ORDERED: SITAGLIPTIN 100 MG TAB PO SCH (13:30)
[2020-10-24] MEDS ORDERED: ENOXAPARIN SOD INJ 40 MG/0.4 ML SYR SC SCH (09:00)
== END 2020-10-23 16:00 | disposition home or self-care (01) | DRG 177 ==
LOC: ER 17:19 → ERHOLD 19:08 → MED/SURG3 22:42 → OBSVTOIN 10-05 12:38 → IMCU 10-07 16:39 → MED/SURG2 10-21 22:57
PROVIDERS: ADMIT Internal Medicine; ATTEND Internal Medicine
PROC: 3E0333Z Introduction of Anti-inflammatory into Peripheral Vein, Percutaneous Approach (ICD-10-PCS; 2020-10-04)
PROC: XW033E5 Introduction of Remdesivir Anti-infective into Peripheral Vein, Percutaneous Approach, New Technology Group 5 (ICD-10-PCS; 2020-10-06)
PROC: 02HV33Z Insertion of Infusion Device into Superior Vena Cava, Percutaneous Approach (ICD-10-PCS; principal; 2020-10-08)
PROC: B548ZZA Ultrasonography of Superior Vena Cava, Guidance (ICD-10-PCS; 2020-10-08)
DX: U07.1 COVID-19 (principal); J12.82 Pneumonia due to coronavirus disease 2019; J96.01 Acute respiratory failure with hypoxia; N17.9 Acute kidney failure, unspecified; E87.5 Hyperkalemia; E86.0 Dehydration; Z83.3 Family history of diabetes mellitus; Z82.49 Family history of ischemic heart disease and other diseases of the circulatory system; I10 Essential (primary) hypertension; T38.0X5A Adverse effect of glucocorticoids and synthetic analogues, initial encounter; E11.9 Type 2 diabetes mellitus without complications
CPT/HCPCS: 36415; 36569; 71045; 71260; 80048; 80053; 82550; 82553; 82728; 82948; 83036; 83605; 83735; 83880; 84100; 84484; 85025; 93005; 94664; 99284; G0378; J0456; J0696; J1100; J1650; J1940; J2543; J3480; J7050; Q9967; U0002

== ENCOUNTER 2022-11-26 15:42 | Outpatient (RCR) | payer BC ==
[~2022-11-26 15:42] MED LIST: IBUPROFEN800 MG PO; ZESTRIL2.5 MG PO
== END 2022-11-30 ==
LOC: OT 15:42
PROVIDERS: ATTEND Specialist
DX: M75.122 Complete rotator cuff tear or rupture of left shoulder, not specified as traumatic (principal)

== ENCOUNTER 2022-12-04 07:16 | Outpatient (RCR) | payer BC | END 2022-12-30 | LOC: OT 07:16 | PROVIDERS: ATTEND Specialist | DX: M75.122 Complete rotator cuff tear or rupture of left shoulder, not specified as traumatic (principal) ==